=== PATIENT | female | born 1985 | race Caucasian/White ===

== ENCOUNTER 2020-10-31 15:14 | Emergency (ER) | payer SELFPAY ==
[~2020-10-31] VITALS: Ht 162.6 cm; Wt 82.0 kg
[2020-10-31] MEDS ORDERED: SODIUM CHLORIDE 0.9% 1,000 ML IV ONE (15:45)
[2020-10-31 16:14] LABS: BASOPHILS % 0.4 % (0.0-2.0); EOSINOPHILS % 0.9 % (0.0-5.0); HEMATOCRIT. 41.1 % (36.0-48.0); HEMOGLOBIN. 14.2 g/dL (12.0-16.0); LYMPHOCYTES % 17.6 % (20.0-50.0); MEAN CORPUSCULAR HEMOGLOBIN 29.4 pg (28.0-32.0); MEAN CORPUSCULAR VOLUME 85.2 fL (81.0-99.0); MEAN PLATELET VOLUME 8.8 fl (7.4-10.4); MONOCYTES % 4.3 % (2.0-8.0); NEUTROPHILS % 76.8 % (40.0-76.0); PLATELET 230 x1000/uL (130-400); RED BLOOD CELL COUNT 4.82 mill/uL (4.2-5.4); RED CELL DISTRIBUTION WIDTH 13.8 % (11.6-14.6)
[2020-10-31 16:16] LABS: CHLORIDE 102 mEq/L (98-107)
[2020-10-31 16:19] LABS: HCG SCREEN NEGATIVE
[2020-10-31] MEDS ORDERED: SODIUM CHLORIDE 0.9% 1,500 ML IV ONE (16:45)
[2020-10-31] MEDS ORDERED: INSULIN REGULAR (HUMULIN R) 300UNITS/3ML VIAL IV ONE (16:45)
[2020-10-31 18:00] VITALS: BP 149/84
== END 2020-10-31 18:28 | disposition home or self-care (01) ==
LOC: ER 15:14
DX: R00.0 Tachycardia, unspecified (principal); T43.615A Adverse effect of caffeine, initial encounter; Y92.89 Other specified places as the place of occurrence of the external cause; E11.65 Type 2 diabetes mellitus with hyperglycemia; Z79.4 Long term (current) use of insulin
CPT/HCPCS: 36415; 71045; 80048; 82962; 84439; 84443; 84484; 84703; 85025; 96374; 99284; J1815; J7030